=== PATIENT | male | born 1970 | race Two or more races ===

== ENCOUNTER 2023-08-07 00:28 | Emergency (ER) | payer OTHER ==
[~2023-08-07] VITALS: Ht 167.6 cm; Wt 92.0 kg
[~2023-08-07 00:28] MED LIST: SERT-158 PO
[2023-08-07 00:30] VITALS: TEMP 98.6
[2023-08-07 02:24] LABS: BASOPHILS % (AUTO) 0.6 % (0.0-2.0); EOSINOPHILS % (AUTO) 2.4 % (1.0-6.0); HEMATOCRIT 47.1 % (41-53); HEMOGLOBIN 16.2 g/dL (13.5-17.5); LYMPHOCYTES # (AUTO) 1.9 K/uL (1.0-4.8); LYMPHOCYTES % (AUTO) 21.6 % (22.0-44.0); MEAN CORPUSCULAR HEMOGLOBIN 31.9 pg (26.0-34.0); MEAN CORPUSCULAR HGB CONC 34.3 G/dL (31.0-37.0); MEAN CORPUSCULAR VOLUME 93 fL (80-100); MONOCYTES # (AUTO) 0.7 K/uL (0.1-1.0); MONOCYTES % (AUTO) 7.7 % (2.0-9.0); NEUTROPHILS # (AUTO) 6.1 K/uL (1.8-7.7); NEUTROPHILS % (AUTO) 67.7 % (40.0-70.0); PLATELET COUNT (AUTO) 231 K/uL (150-450); RED BLOOD CELL COUNT(AUTO) 5.07 MIL/uL (4.50-5.90); RED CELL DISTRIBUTION WIDTH 14.3 % (11.5-14.5)
[2023-08-07 02:29] LABS: ANION GAP 11 mmol/L (8-16); CALCIUM, TOTAL 9.6 mg/dL (8.8-10.5); CARBON DIOXIDE 25 mmol/L (22-29); CHLORIDE 100 mmol/L (98-107); GLOMERULAR FILTR. RATE CALC > 60 mL/min (>60); GLUCOSE,RANDOM 122 mg/dL (70-110); POTASSIUM 3.3 mmol/L (3.5-5.1); SODIUM SERUM 136 mmol/L (136-145); UREA NITROGEN, BLOOD 5 mg/dL (7-18)
[2023-08-07 02:31] LABS: TROPONIN I-HIGH SENSITIVITY 9 ng/L (<76)
[2023-08-07 02:35] LABS: ALANINE AMINOTRANSFERASE 58 U/L (12-78); ALBUMIN 4.2 g/dL (3.4-5.0); ALKALINE PHOSPHATASE 69 U/L (46-116); ASPARTATE AMINOTRANSFERASE 27 U/L (15-37); BILIRUBIN,TOTAL 0.5 mg/dL (0.1-1.0); TOTAL PROTEIN, SERUM 7.4 g/dL (6.4-8.2)
[2023-08-07] MEDS ORDERED: AmLODIPine BESYLATE 5 MG TABLET PO ONE (02:45)
[2023-08-07] MEDS ORDERED: HYDROCHLOROTHIAZIDE 25 MG TABLET PO ONE (02:45)
[2023-08-07] MEDS ORDERED: POTASSIUM CHLORIDE 10% 40 MEQ/30 ML LIQUID UDCUP PO ONE (02:45)
[2023-08-07] MEDS ORDERED: AMLO-257 PO (03:11)
[2023-08-07 03:54] VITALS: BP 143/90; PULSE 73; RESP 18
[2023-08-07 04:06] LABS: APPEARANCE,URINE CLEAR (CLEAR); BILIRUBIN,URINE NEGATIVE (NEGATIVE); COLOR,URINE LIGHT YELLOW (YELLOW); GLUCOSE, URINE (UA) NEGATIVE (NEGATIVE); KETONES,URINE TRACE mg/dL (NEGATIVE); LEUKOCYTE ESTERASE ,URINE NEGATIVE (NEGATIVE); NITRATE,URINE NEGATIVE (NEGATIVE); OCCULT BLOOD,URINE NEGATIVE (NEGATIVE); PROTEIN,URINE NEGATIVE (NEGATIVE); SPECIFIC GRAVITIY, URINE 1.007 (1.003-1.030); UROBILINOGEN,URINE <=1.0 mg/dL (<=1.0)
[2023-08-07 04:17] LABS: BACTERIA,URINE None Seen /HPF (None Seen); CALCIUM OXALATE CRYSTALS,UR Few /LPF (None Seen); RBC,URINE None Seen /HPF (0-2); SQUAMOUS EPITHELIAL CELL,UR Few /LPF (None Seen); WBC,URINE None Seen /HPF (0-5)
== END 2023-08-07 04:13 | disposition home or self-care (01) ==
LOC: EMS 00:29
DX: I10 Essential (primary) hypertension (principal); E87.6 Hypokalemia; F32.A Depression, unspecified
CPT/HCPCS: 71045; 80053; 81001; 84484; 85025; 93005; 99285; 36415-L1; 36415-TC

== ENCOUNTER 2024-11-06 17:06 | Emergency (ER) | payer OTHER ==
[~2024-11-06] VITALS: Ht 165.1 cm; Wt 109.1 kg
[~2024-11-06 17:06] MED LIST changes: +AMLO-257 PO
[2024-11-06 17:56] VITALS: BP 140/92; PULSE 71; RESP 19; TEMP 98.1; O2SAT 97
[2024-11-06 18:40] LABS: BASOPHILS % (AUTO) 0.6 % (0.0-2.0); EOSINOPHILS % (AUTO) 2.8 % (1.0-6.0); HEMATOCRIT 45.3 % (41-53); HEMOGLOBIN 15.6 g/dL (13.5-17.5); LYMPHOCYTES # (AUTO) 2.5 K/uL (1.0-4.8); LYMPHOCYTES % (AUTO) 27.9 % (22.0-44.0); MEAN CORPUSCULAR HEMOGLOBIN 31.9 pg (26.0-34.0); MEAN CORPUSCULAR HGB CONC 34.5 G/dL (31.0-37.0); MEAN CORPUSCULAR VOLUME 93 fL (80-100); MONOCYTES # (AUTO) 0.6 K/uL (0.1-1.0); MONOCYTES % (AUTO) 6.5 % (2.0-9.0); NEUTROPHILS # (AUTO) 5.6 K/uL (1.8-7.7); NEUTROPHILS % (AUTO) 62.2 % (40.0-70.0); PLATELET COUNT (AUTO) 237 K/uL (150-450); RED BLOOD CELL COUNT(AUTO) 4.89 MIL/uL (4.50-5.90); RED CELL DISTRIBUTION WIDTH 13.9 % (11.5-14.5)
[2024-11-06 18:44] LABS: APPEARANCE,URINE CLEAR (CLEAR); BILIRUBIN,URINE NEGATIVE (NEGATIVE); COLOR,URINE COLORLESS (YELLOW); GLUCOSE, URINE (UA) NEGATIVE (NEGATIVE); KETONES,URINE NEGATIVE (NEGATIVE); LEUKOCYTE ESTERASE ,URINE NEGATIVE (NEGATIVE); NITRATE,URINE NEGATIVE (NEGATIVE); OCCULT BLOOD,URINE NEGATIVE (NEGATIVE); PROTEIN,URINE NEGATIVE (NEGATIVE); SPECIFIC GRAVITIY, URINE 1.002 (1.003-1.030); UROBILINOGEN,URINE <=1.0 mg/dL (<=1.0)
[2024-11-06 18:52] LABS: ANION GAP 8 mmol/L (8-16); CALCIUM, TOTAL 9.2 mg/dL (8.8-10.5); CARBON DIOXIDE 27 mmol/L (22-29); CHLORIDE 99 mmol/L (98-107); CREATININE 0.86 mg/dL (0.60-1.30); GLOMERULAR FILTR. RATE CALC > 60 mL/min (>60); GLUCOSE,RANDOM 109 mg/dL (70-110); POTASSIUM 3.7 mmol/L (3.5-5.1); SODIUM SERUM 134 mmol/L (136-145); UREA NITROGEN, BLOOD 7 mg/dL (7-18)
[2024-11-06 18:57] LABS: METHADONE SCREEN, URINE NEGATIVE (NEGATIVE)
[2024-11-06 19:07] LABS: AMPHET/METH SCREEN,URINE NEGATIVE (NEGATIVE); BARBITURATE SCREEN, URINE NEGATIVE (NEGATIVE); BENZODIAZEPINES SCREEN,URINE NEGATIVE (NEGATIVE); CANNABINOID SCREEN,URINE NEGATIVE (NEGATIVE); COCAINE SCREEN,URINE NEGATIVE (NEGATIVE); PHENCYCLIDINE SCREEN,URINE NEGATIVE (NEGATIVE)
[2024-11-06 19:16] LABS: ALCOHOL, URINE DRUG SCREEN NEGATIVE (NEGATIVE)
[2024-11-06 19:21] LABS: ALCOHOL, BLOOD (SERUM) < 3 mg/dL (0-10)
[2024-11-06 19:27] LABS: OPIATE SCREEN,URINE NEGATIVE (NEGATIVE)
[2024-11-06] MEDS ORDERED: FAMO20 PO (19:44)
[2024-11-06] MEDS ORDERED: VENL225T PO (19:44)
[2024-11-06] MEDS ORDERED: NICO-575 PO (19:44)
[2024-11-06] MEDS ORDERED: FLUT16H NASAL (19:44)
[2024-11-06] MEDS ORDERED: TRAZ-184 PO (19:44)
[2024-11-06] MEDS ORDERED: NICO-703 TD (19:44)
[2024-11-06] MEDS ORDERED: LAMO200T10 PO (19:44)
[2024-11-06] MEDS ORDERED: PROP10TA72 PO (19:44)
[2024-11-06] MEDS ORDERED: ATOR20TA65 PO (19:44)
[2024-11-06] MEDS: LORazepam 1 MG TABLET PO ONE (19:49)
== END 2024-11-06 19:53 | disposition home or self-care (01) ==
LOC: EMS 17:08
DX: F41.9 Anxiety disorder, unspecified (principal); G47.00 Insomnia, unspecified; Z79.899 Other long term (current) drug therapy
CPT/HCPCS: 99283; 80048; 81003; 85025; 36415; 80307; G0480

== ENCOUNTER 2024-11-12 18:28 | Emergency (ER) | payer OTHER ==
[~2024-11-12] VITALS: Ht 165.1 cm; Wt 95.5 kg
[~2024-11-12 18:28] MED LIST changes: -AMLO-257 PO; +ATOR20TA65 PO; +FAMO20 PO; +FLUT16H NASAL; +LAMO200T10 PO; +NICO-575 PO; +NICO-703 TD; +PROP10TA72 PO; -SERT-158 PO; +TRAZ-184 PO; +VENL225T PO
[2024-11-12 19:55] VITALS: TEMP 98.105288
[2024-11-12] MEDS ORDERED: VENL-68 PO (19:59)
[2024-11-12] MEDS: METOPROLOL TARTRATE 25 MG TABLET PO ONE (20:13)
[2024-11-12] MEDS: LORazepam 1 MG TABLET PO ONE (20:13)
[2024-11-12] MEDS ORDERED: AMLO2.5T96 PO (20:15)
[2024-11-12] MEDS: ACETAMINOPHEN 500 MG TABLET PO ONE (21:08)
[2024-11-12 21:26] VITALS: BP 144/97; PULSE 68; RESP 16; O2SAT 96
== END 2024-11-12 21:43 | disposition home or self-care (01) ==
LOC: EMS 19:28
DX: I10 Essential (primary) hypertension (principal); F41.9 Anxiety disorder, unspecified; F32.A Depression, unspecified; Z79.899 Other long term (current) drug therapy
CPT/HCPCS: 99284; Z7502; Z7610